=== PATIENT | female | born 1950 | race African-American/Black ===

== ENCOUNTER 2025-02-09 17:36 | Emergency (ER) | payer MEDICARE, OTHER ==
[~2025-02-09] VITALS: Ht 165.1 cm; Wt 91.0 kg
[2025-02-09 17:42] VITALS: O2SAT 98
[2025-02-09 18:50] LABS: BASOPHILS % 0.5 % (0.0-2.0); EOSINOPHILS % 0.2 % (0.0-5.0); HEMATOCRIT. 39.6 % (36.0-48.0); HEMOGLOBIN. 12.9 g/dL (12.0-16.0); LYMPHOCYTES % 9.7 % (20.0-50.0); MEAN PLATELET VOLUME 8.8 fl (7.4-10.4); MONOCYTES % 2.3 % (2.0-8.0); NEUTROPHILS % 87.3 % (40.0-76.0); PLATELET 363 x1000/uL (130-400); RED BLOOD CELL COUNT 4.39 mill/uL (4.2-5.4); RED CELL DISTRIBUTION WIDTH 15.5 % (11.6-14.6)
[2025-02-09 18:59] LABS: INR 1.0
[2025-02-09 19:03] LABS: CREATININE 1.4 mg/dL (0.6-1.0)
[2025-02-09 19:04] LABS: UREA NITROGEN BLOOD 14 mg/dL (9-23)
[2025-02-09 19:05] LABS: TROPONIN I HIGH SENSITIVITY < 4 ng/L (3.0-34)
[2025-02-09 20:20] LABS: INFLUENZA TYPE A Presumptive Negative (Pres. Neg.)
[2025-02-09 20:21] LABS: INFLUENZA TYPE B Presumptive Negative (Pres. Neg.)
[2025-02-09 20:22] LABS: RESPIRATORY SYNCYTIAL VIRUS Not Detected (Not Detectd)
[2025-02-09 21:33] VITALS: BP 138/64; PULSE 100; RESP 16; TEMP 36.8; O2SAT 98
[2025-02-10] MEDS ORDERED: IOHEXOL-350 100 ML BOTTLE ONE (02:09)
== END 2025-02-09 21:34 | disposition home or self-care (01) ==
LOC: ER 17:36
DX: R06.02 Shortness of breath (principal); R07.89 Other chest pain; I10 Essential (primary) hypertension; Z86.73 Personal history of transient ischemic attack (TIA), and cerebral infarction without residual deficits; Z79.899 Other long term (current) drug therapy; Z20.822 Contact with and (suspected) exposure to COVID-19
CPT/HCPCS: 99285; 71275; 71045; 87426; 80048; 83880; 85025; 85379; 85610; 85730; 87420; 84484; 87804 ×2; 36415; 93005; Q9967; A4606